=== PATIENT | female | born 1980 | race Caucasian/White ===

== ENCOUNTER 2018-10-03 18:20 | Emergency (ER) | payer OTHER ==
[~2018-10-03] VITALS: Ht 157.5 cm; Wt 80.0 kg
[~2018-10-03 18:20] MED LIST: ALBU8HFA PO; CITA-311 PO; PRED10TA PO; PROP20TA6 PO
[2018-10-03 18:29] VITALS: BP 124/65
[2018-10-03] MEDS ORDERED: GUAI120L55 PO (19:48)
[2018-10-03] MEDS ORDERED: PRED20TA PO (19:48)
== END 2018-10-03 20:06 | disposition home or self-care (01) ==
LOC: ER 18:21
DX: J20.9 Acute bronchitis, unspecified (principal); R07.89 Other chest pain; G43.909 Migraine, unspecified, not intractable, without status migrainosus; J45.909 Unspecified asthma, uncomplicated; F17.200 Nicotine dependence, unspecified, uncomplicated; Z79.899 Other long term (current) drug therapy
CPT/HCPCS: 99283

== ENCOUNTER 2019-08-02 22:38 | Emergency (ER) | payer OTHER ==
[~2019-08-02] VITALS: Ht 157.5 cm; Wt 82.7 kg
[~2019-08-02 22:38] MED LIST changes: +GUAI120L55 PO
[2019-08-02 22:43] VITALS: BP 126/67
[2019-08-02] MEDS ORDERED: PRED20TA PO ×2 (23:23→23:25)
[2019-08-02] MEDS ORDERED: ACET-3068 PO (23:23)
[2019-08-02] MEDS ORDERED: INHA1INH2 (23:23)
[2019-08-02] MEDS ORDERED: BENZ-16 PO (23:23)
[2019-08-02] MEDS ORDERED: GUAI-647 PO (23:25)
[2019-08-02] MEDS ORDERED: benzonatate 100mg capsule PO ONE (23:30)
[2019-08-02] MEDS ORDERED: ALBU18HF2 INH (23:38)
== END 2019-08-02 23:44 | disposition home or self-care (01) ==
LOC: ER 22:38
DX: J06.9 Acute upper respiratory infection, unspecified (principal); G43.909 Migraine, unspecified, not intractable, without status migrainosus; J45.909 Unspecified asthma, uncomplicated; F32.9 Major depressive disorder, single episode, unspecified; F17.200 Nicotine dependence, unspecified, uncomplicated; Z88.6 Allergy status to analgesic agent; Z79.899 Other long term (current) drug therapy
CPT/HCPCS: 99283

== ENCOUNTER 2020-08-17 15:42 | Emergency (ER) | payer MEDICAID ==
[~2020-08-17] VITALS: Ht 157.5 cm; Wt 88.0 kg
[~2020-08-17 15:42] MED LIST changes: +ALBU18HF2 INH; +INHA1INH2
[2020-08-17 15:45] VITALS: BP 119/44
[2020-08-17] MEDS ORDERED: ALB0.5UD IH (16:52)
[2020-08-17] MEDS ORDERED: PRED20TA PO (16:52)
== END 2020-08-17 17:07 | disposition home or self-care (01) ==
LOC: ER 15:42
DX: J20.9 Acute bronchitis, unspecified (principal); G43.909 Migraine, unspecified, not intractable, without status migrainosus; J45.909 Unspecified asthma, uncomplicated; Z91.041 Radiographic dye allergy status; Z79.899 Other long term (current) drug therapy
CPT/HCPCS: 99283

== ENCOUNTER 2020-10-11 23:29 | Emergency (ER) | payer MEDICAID, OTHER ==
[~2020-10-11] VITALS: Ht 157.5 cm; Wt 75.0 kg
[2020-10-11 23:32] VITALS: BP 135/87
[2020-10-11] MEDS ORDERED: PRED20TA PO (23:43)
== END 2020-10-12 00:15 | disposition home or self-care (01) ==
LOC: ER 23:29
DX: J02.9 Acute pharyngitis, unspecified (principal); R43.8 Other disturbances of smell and taste; R05 Cough; R50.9 Fever, unspecified; Z20.822 Contact with and (suspected) exposure to COVID-19; G43.909 Migraine, unspecified, not intractable, without status migrainosus; J45.909 Unspecified asthma, uncomplicated; F32.9 Major depressive disorder, single episode, unspecified; Z88.8 Allergy status to other drugs, medicaments and biological substances; Z79.899 Other long term (current) drug therapy
CPT/HCPCS: 36415; 87635; 99283; C9803

== ENCOUNTER 2020-12-09 21:52 | Emergency (ER) | payer SELFPAY ==
[~2020-12-09] VITALS: Ht 157.5 cm; Wt 77.7 kg
[2020-12-09 22:09] VITALS: BP 129/94
[2020-12-09] MEDS ORDERED: ketorolac tromethamine 15mg/ml inj. IM ONE (22:55)
== END 2020-12-09 23:35 | disposition home or self-care (01) ==
LOC: ER 21:52
DX: G43.909 Migraine, unspecified, not intractable, without status migrainosus (principal); R11.2 Nausea with vomiting, unspecified; J45.909 Unspecified asthma, uncomplicated; F32.9 Major depressive disorder, single episode, unspecified; Z88.8 Allergy status to other drugs, medicaments and biological substances; Z79.899 Other long term (current) drug therapy
CPT/HCPCS: 96372; 99283; J1885

== ENCOUNTER 2021-01-19 22:53 | Emergency (ER) | payer OTHER ==
[~2021-01-19] VITALS: Ht 157.5 cm; Wt 82.9 kg
[2021-01-19 23:00] VITALS: BP 130/82
[2021-01-19] MEDS ORDERED: TETanus/Pertussis (Acell)/Diphther VAC/PF (Tdap-Adult) 0.5ml syringe IMVAC ONE (23:50)
== END 2021-01-20 00:25 | disposition home or self-care (01) ==
LOC: ER 22:53
DX: S80.02XA Contusion of left knee, initial encounter (principal); G43.909 Migraine, unspecified, not intractable, without status migrainosus; J45.909 Unspecified asthma, uncomplicated; Z87.81 Personal history of (healed) traumatic fracture; Z91.041 Radiographic dye allergy status; Z72.89 Other problems related to lifestyle; Z79.899 Other long term (current) drug therapy; V00.131A Fall from skateboard, initial encounter; Z91.81 History of falling; Y93.89 Activity, other specified; Y92.89 Other specified places as the place of occurrence of the external cause; Y99.8 Other external cause status
CPT/HCPCS: 73564; 90471; 90715; 99284

== ENCOUNTER 2021-01-22 23:19 | Emergency (ER) | payer OTHER ==
[~2021-01-22] VITALS: Ht 157.5 cm; Wt 81.8 kg
[2021-01-22 23:40] VITALS: BP 131/84
--- NOTE | 2021-01-23 01:24 | NUR ---
PT TO ROOM, ASSUMED CARE
--- NOTE | 2021-01-23 01:53 | NUR ---
Note agnes in [facility] - 01/23/21 at 0159 by [email or web address] pt states he does not want to wait. left without signing papers or with d/c papers.
--- NOTE | 2021-01-23 01:57 | NUR ---
Ty alarcon in [facility] - 01/23/21 at 0159 by [email or web address] unable to collect last set of VS
--- NOTE | 2021-01-23 02:45 | NUR ---
pt not in room after 30 minutes. pt expressed leaving and has not returned.
== END 2021-01-23 03:06 | disposition left against medical advice (07) ==
LOC: ER 23:20
DX: M25.569 Pain in unspecified knee (principal); Z53.21 Procedure and treatment not carried out due to patient leaving prior to being seen by health care provider

== ENCOUNTER 2021-03-22 18:48 | Emergency (ER) | payer OTHER ==
[~2021-03-22] VITALS: Ht 157.5 cm; Wt 71.8 kg
[2021-03-22 18:49] VITALS: BP 144/90
--- NOTE | 2021-03-22 20:30 | NUR ---
patient walked out prior to being seen by provider
== END 2021-03-22 20:45 | disposition left against medical advice (07) ==
LOC: ER 18:49
DX: R51.9 Headache, unspecified (principal); Z53.21 Procedure and treatment not carried out due to patient leaving prior to being seen by health care provider

== ENCOUNTER 2021-05-29 20:07 | Emergency (ER) | payer MEDICAID ==
[~2021-05-29] VITALS: Ht 157.5 cm; Wt 81.8 kg
[2021-05-29 20:35] VITALS: BP 108/82
[2021-05-29] MEDS ORDERED: ketorolac trometh inj. 60 MG/2 ML VIAL IM ONE (20:55)
== END 2021-05-29 22:01 | disposition home or self-care (01) ==
LOC: ER 20:08
DX: G43.909 Migraine, unspecified, not intractable, without status migrainosus (principal); R11.10 Vomiting, unspecified; J45.909 Unspecified asthma, uncomplicated; F32.9 Major depressive disorder, single episode, unspecified; F17.200 Nicotine dependence, unspecified, uncomplicated; Z88.8 Allergy status to other drugs, medicaments and biological substances; Z79.899 Other long term (current) drug therapy
CPT/HCPCS: 96372; 99283; J1885

== ENCOUNTER 2022-01-09 18:51 | Emergency (ER) | payer SELFPAY ==
[~2022-01-09] VITALS: Ht 157.5 cm; Wt 84.1 kg
[2022-01-09 19:19] VITALS: BP 147/79
[2022-01-09] MEDS ORDERED: normal saline 1000ml 1,000 ML IV ONE (20:00)
[2022-01-09] MEDS ORDERED: diphenhydrAMINE 50 mg/ml inj IV ONE (20:00)
[2022-01-09] MEDS ORDERED: proCHLORperazine 10 MG/2 ml inj IV ONE (20:00)
[2022-01-09] MEDS ORDERED: ketorolac trometh. 30mg/ml inj. IV ONE (20:35)
== END 2022-01-09 21:06 | disposition home or self-care (01) ==
LOC: ER 18:52
DX: G43.909 Migraine, unspecified, not intractable, without status migrainosus (principal); J45.909 Unspecified asthma, uncomplicated; F32.A Depression, unspecified; Z88.8 Allergy status to other drugs, medicaments and biological substances; Z79.899 Other long term (current) drug therapy
CPT/HCPCS: 96374; 99283; J1885

== ENCOUNTER 2022-01-31 22:26 | Emergency (ER) | payer OTHER ==
[~2022-01-31] VITALS: Ht 157.5 cm; Wt 89.9 kg
[2022-01-31] MEDS ORDERED: ketorolac trometh inj. 60 MG/2 ML VIAL IM ONE (23:15)
[2022-01-31] MEDS ORDERED: TRAM50TA2 PO (23:33)
[2022-01-31] MEDS ORDERED: CYCL-1 PO (23:33)
[2022-01-31 23:36] VITALS: BP 155/102
== END 2022-01-31 23:40 | disposition home or self-care (01) ==
LOC: ER 22:27
DX: S30.0XXA Contusion of lower back and pelvis, initial encounter (principal); S90.32XA Contusion of left foot, initial encounter; K59.00 Constipation, unspecified; M79.675 Pain in left toe(s); G43.909 Migraine, unspecified, not intractable, without status migrainosus; J45.909 Unspecified asthma, uncomplicated; F32.A Depression, unspecified; Z88.8 Allergy status to other drugs, medicaments and biological substances; Z79.899 Other long term (current) drug therapy
CPT/HCPCS: 72220; 73660; 96372; 99284; J1885

== ENCOUNTER 2022-02-09 17:43 | Emergency (ER) | payer SELFPAY ==
[~2022-02-09 17:43] MED LIST changes: +CYCL-1 PO; +TRAM50TA2 PO
== END 2022-02-09 18:47 | disposition left against medical advice (07) ==
LOC: ER 17:44
DX: M54.89 Other dorsalgia (principal); Z53.21 Procedure and treatment not carried out due to patient leaving prior to being seen by health care provider

== ENCOUNTER 2022-02-12 08:41 | Emergency (ER) | payer MEDICAID, OTHER ==
[~2022-02-12] VITALS: Ht 157.5 cm; Wt 81.8 kg
[2022-02-12 09:00] VITALS: BP 128/93
[2022-02-12] MEDS ORDERED: KETO10TA2 PO (09:12)
[2022-02-12] MEDS ORDERED: TRAM50TA2 PO (09:12)
[2022-02-12] MEDS ORDERED: CYCL-1 PO (09:12)
[2022-02-12] MEDS ORDERED: LIDO700A32 TOP (09:12)
[2022-02-12] MEDS ORDERED: ketorolac trometh inj. 60 MG/2 ML VIAL IM ONE (09:15)
== END 2022-02-12 09:52 | disposition home or self-care (01) ==
LOC: ER 08:42
DX: S30.0XXA Contusion of lower back and pelvis, initial encounter (principal); R26.2 Difficulty in walking, not elsewhere classified; G43.909 Migraine, unspecified, not intractable, without status migrainosus; J45.909 Unspecified asthma, uncomplicated; F32.A Depression, unspecified; Z88.8 Allergy status to other drugs, medicaments and biological substances; Z79.899 Other long term (current) drug therapy; W19.XXXA Unspecified fall, initial encounter; Y93.89 Activity, other specified; Y92.89 Other specified places as the place of occurrence of the external cause; Y99.8 Other external cause status
CPT/HCPCS: 96372; 99284; J1885

== ENCOUNTER 2022-09-09 22:39 | Emergency (ER) | payer BC, MEDICAID, OTHER ==
[~2022-09-09] VITALS: Ht 157.5 cm; Wt 80.9 kg
[~2022-09-09 22:39] MED LIST changes: +KETO10TA2 PO; +LIDO700A32 TOP; -TRAM50TA2 PO
[2022-09-09 22:43] VITALS: BP 139/85
== END 2022-09-09 23:58 | disposition home or self-care (01) ==
LOC: ER 22:40
DX: B34.9 Viral infection, unspecified (principal); Z20.822 Contact with and (suspected) exposure to COVID-19; R05.9 Cough, unspecified; R09.89 Other specified symptoms and signs involving the circulatory and respiratory systems; R50.9 Fever, unspecified; G43.909 Migraine, unspecified, not intractable, without status migrainosus; J45.909 Unspecified asthma, uncomplicated; F32.A Depression, unspecified; Z88.8 Allergy status to other drugs, medicaments and biological substances; Z79.899 Other long term (current) drug therapy
CPT/HCPCS: 87502; 87503; 87635; 99283; C9803

== ENCOUNTER 2022-09-11 20:43 | Emergency (ER) | payer SELFPAY ==
[~2022-09-11] VITALS: Ht 157.5 cm; Wt 79.5 kg
[2022-09-11 20:52] VITALS: BP 154/104
== END 2022-09-11 22:54 | disposition left against medical advice (07) ==
LOC: ER 20:44
DX: R05.9 Cough, unspecified (principal); Z53.21 Procedure and treatment not carried out due to patient leaving prior to being seen by health care provider

== ENCOUNTER 2022-09-13 15:20 | Emergency (ER) | payer BC ==
[~2022-09-13] VITALS: Ht 157.5 cm; Wt 79.5 kg
[2022-09-13 16:01] VITALS: BP 125/76
[2022-09-13] MEDS ORDERED: dexamethasone sod phosphate 10mg/ml inj PO STA (18:50)
== END 2022-09-13 19:07 | disposition home or self-care (01) ==
LOC: ER 15:21
DX: J20.9 Acute bronchitis, unspecified (principal); J04.0 Acute laryngitis; G43.909 Migraine, unspecified, not intractable, without status migrainosus; Z91.041 Radiographic dye allergy status
CPT/HCPCS: 99283; J1100

== ENCOUNTER 2022-09-16 20:19 | Emergency (ER) | payer SELFPAY ==
[~2022-09-16] VITALS: Ht 157.5 cm; Wt 93.4 kg
[2022-09-16 20:25] VITALS: BP 141/107
== END 2022-09-17 03:50 | disposition left against medical advice (07) ==
LOC: ER 20:21
DX: Z02.79 Encounter for issue of other medical certificate (principal); Z53.21 Procedure and treatment not carried out due to patient leaving prior to being seen by health care provider

== ENCOUNTER 2023-03-05 02:00 | Emergency (ER) | payer SELFPAY ==
[~2023-03-05] VITALS: Ht 157.5 cm; Wt 94.0 kg
[2023-03-05 02:34] VITALS: BP 150/104
== END 2023-03-05 08:41 | disposition left against medical advice (07) ==
LOC: ER 02:01
DX: M79.602 Pain in left arm (principal); Z53.21 Procedure and treatment not carried out due to patient leaving prior to being seen by health care provider
CPT/HCPCS: 99281

== ENCOUNTER 2023-11-26 20:32 | Emergency (ER) | payer BC ==
[~2023-11-26] VITALS: Ht 157.5 cm; Wt 85.0 kg
[2023-11-26 20:38] VITALS: BP 163/84; PULSE 82; RESP 16; TEMP 98.2; O2SAT 95
[2023-11-26] MEDS ORDERED: TETRAcaine 0.5% ophthalmic drops 15ml EACHEYE ONE (23:25)
[2023-11-26] MEDS ORDERED: TETRACAINE 0.5% 4 ML OPHTHALMIC DROPS EACHEYE ONE (23:35)
== END 2023-11-27 00:49 | disposition left against medical advice (07) ==
LOC: ER 20:32
DX: H57.12 Ocular pain, left eye (principal); Z53.21 Procedure and treatment not carried out due to patient leaving prior to being seen by health care provider
CPT/HCPCS: 99281

== ENCOUNTER 2024-05-11 20:17 | Emergency (ER) | payer BC ==
[~2024-05-11] VITALS: Ht 157.5 cm; Wt 86.0 kg
[2024-05-11] MEDS: HYDROcodone/acetaminophen 5mg/325mg tablet PO STA (22:19)
[2024-05-11 22:24] VITALS: BP 141/84; PULSE 88; RESP 18; TEMP 98.9; O2SAT 98
== END 2024-05-11 22:25 | disposition home or self-care (01) ==
LOC: ER 20:18
DX: S93.401A Sprain of unspecified ligament of right ankle, initial encounter (principal); G43.909 Migraine, unspecified, not intractable, without status migrainosus; J45.909 Unspecified asthma, uncomplicated; F32.A Depression, unspecified; Z91.041 Radiographic dye allergy status; Z79.899 Other long term (current) drug therapy; X50.1XXA Overexertion from prolonged static or awkward postures, initial encounter; Y93.89 Activity, other specified; Y92.89 Other specified places as the place of occurrence of the external cause; Y99.8 Other external cause status
CPT/HCPCS: 73610; 99283

== ENCOUNTER 2024-05-18 00:17 | Emergency (ER) | payer BC ==
[~2024-05-18] VITALS: Ht 157.5 cm; Wt 109.5 kg
[2024-05-18] MEDS ORDERED: CEPH-585 PO (03:02)
[2024-05-18] MEDS: cephalexin 250mg capsule PO ONE (03:13)
[2024-05-18 03:19] VITALS: BP 131/89; PULSE 73; RESP 14; TEMP 98.8; O2SAT 97
== END 2024-05-18 03:21 | disposition home or self-care (01) ==
LOC: ER 00:19
DX: S80.02XA Contusion of left knee, initial encounter (principal); S90.02XA Contusion of left ankle, initial encounter; G43.909 Migraine, unspecified, not intractable, without status migrainosus; G40.909 Epilepsy, unspecified, not intractable, without status epilepticus; F17.210 Nicotine dependence, cigarettes, uncomplicated; F32.A Depression, unspecified; J45.909 Unspecified asthma, uncomplicated; Z87.81 Personal history of (healed) traumatic fracture; W18.30XA Fall on same level, unspecified, initial encounter; Z91.041 Radiographic dye allergy status; Z79.899 Other long term (current) drug therapy; Z91.81 History of falling; Y93.89 Activity, other specified; Y92.89 Other specified places as the place of occurrence of the external cause; Y99.8 Other external cause status
CPT/HCPCS: 99284

== ENCOUNTER 2024-06-07 02:08 | Inpatient (IN) | payer BC ==
[~2024-06-07] VITALS: Ht 157.5 cm; Wt 100.0 kg
[2024-06-07] VITALS (7 sets, daily range): BP systolic 121–156; BP diastolic 76–99; PULSE 64–72; RESP 14–22; TEMP 98–98.7; O2SAT 94–97
[2024-06-07 02:41] LABS: BASOPHILS # (AUTO) 0.1 X10'3 (0-0.2); BASOPHILS % (AUTO) 0.8 % (0-1); EOSINOPHILS # (AUTO) 0.1 X10'3 (0-0.9); EOSINOPHILS % (AUTO) 1.3 % (0-6); HEMATOCRIT 41.6 % (35.0-45.0); HEMOGLOBIN 13.5 g/dl (12.0-16.0); LYMPHOCYTES # (AUTO) 1.3 X10'3 (1.1-4.8); LYMPHOCYTES % (AUTO) 11.9 % (21-51); MEAN CORPUSCULAR HEMOGLOBIN 32.3 PG (27.0-31.0); MEAN CORPUSCULAR HGB CONC 32.4 g/dL (33.0-36.5); MEAN CORPUSCULAR VOLUME 99.5 FL (78-98); MEAN PLATELET VOLUME 8.3 FL (7.4-10.4); MONOCYTES # (AUTO) 1.1 X10'3 (0-0.9); MONOCYTES % (AUTO) 9.4 % (2-12); NEUTROPHILS # (AUTO) 8.5 X10'3 (1.8-7.7); NEUTROPHILS % (AUTO) 76.6 % (42-75); PLATELET COUNT 283 X10'3 (140-440); RED BLOOD COUNT 4.18 X10'6 (4.20-5.60); RED CELL DISTRIBUTION WIDTH 17.4 % (11.5-14.5); WHITE BLOOD COUNT 11.2 X10'3 (4.5-11.0)
[2024-06-07 02:54] LABS: ALANINE AMINOTRANSFERASE 42 U/L (12-78); ALBUMIN 3.4 G/DL (3.4-5.0); ALBUMIN/GLOBULIN RATIO 0.9 (1.1-1.5); ALKALINE PHOSPHATASE 115 IU/L (46-116); ANION GAP 11 (8-16); ASPARTATE AMINO TRANSFERASE 77 U/L (10-37); BILIRUBIN,TOTAL 0.4 MG/DL (0.1-1.0); BLOOD UREA NITROGEN 3 MG/DL (7-18); BUN/CREATININE RATIO 5.9 (10.0-20.0); CALCIUM 9.3 MG/DL (8.5-10.1); CHLORIDE 102 MMOL/L (99-107); CREATININE 0.51 MG/DL (0.40-0.90); GLUCOSE 102 MG/DL (70-104); POTASSIUM 3.1 MMOL/L (3.5-5.1); SODIUM 141 MMOL/L (135-145); TOTAL CARBON DIOXIDE 28.3 MMOL/L (24-32); TOTAL PROTEIN 7.1 G/DL (6.4-8.2); eCRCL 110 ML/MIN; eGFR > 90 ML/MIN
[2024-06-07] MEDS: normal saline 1000ml 1,000 ML IV ONE ×2 (02:56→03:05)
[2024-06-07] MEDS: ondansetron/PF 4mg/2ml inj IV ONE (02:57)
[2024-06-07] MEDS: famotidine/PF 10 mg/ml inj IV ONE (02:59)
[2024-06-07] MEDS: pantoprazole 40 MG vial IV ONE (03:00)
[2024-06-07] MEDS: mag hydrox/Alum hydrox/simeth 30ml oral suspension PO ONE (03:02)
[2024-06-07] MEDS: LIDOcaine 2% Viscous 15ml cup MM ONE (03:02)
[2024-06-07 03:12] LABS: LIPASE > 375 U/L (16-77)
[2024-06-07] MEDS: morphine 4 MG/ML inj SYRINge IV ONE (03:45)
[2024-06-07] MEDS: nicotine 21mg patch - 24 hr TD ONE (04:30)
[2024-06-07] MEDS ORDERED: CITA20TA28 PO (04:41)
[2024-06-07] MEDS ORDERED: ROSU10TA72 PO (04:41)
[2024-06-07] MEDS ORDERED: HYDR-3686 PO (04:41)
[2024-06-07] MEDS ORDERED: OMEP40CA21 PO (04:41)
[2024-06-07] MEDS ORDERED: CLON-850 PO (04:41)
[2024-06-07] MEDS ORDERED: SERT25TA PO (04:41)
[2024-06-07] MEDS ORDERED: LISI40TA13 PO (04:41)
[2024-06-07] MEDS ORDERED: QUET25TA PO (04:41)
[2024-06-07] MEDS ORDERED: SUMA25TA35 PO (04:41)
[2024-06-07] MEDS ORDERED: potassium Cl 40MEQ/1/2NS 520ml 520 ML IV PRN (04:55)
[2024-06-07] MEDS ORDERED: magnesium hydroxide 30ml (MOM) UD suspension PO PRN (04:55)
[2024-06-07] MEDS ORDERED: haloperidol lactate 5mg/ml inj IM PRN (04:55)
[2024-06-07] MEDS ORDERED: morphine 2 MG/ML inj. syringe IV PRN (04:55)
[2024-06-07] MEDS ORDERED: haloperidol 5mg tablet PO PRN (04:55)
[2024-06-07] MEDS ORDERED: magnesium sulf-water 2g/50mL 50 ML IV PRN (04:55)
[2024-06-07] MEDS ORDERED: potassium Cl 20 mEq SR tablet PO PRN (04:55)
[2024-06-07] MEDS ORDERED: magnesium sulf-water 4G/100mL 100 ML IV PRN (04:55)
[2024-06-07] MEDS ORDERED: magnesium Cl slow-release 64mg tablet PO PRN (04:55)
[2024-06-07] MEDS: LORazepam 2 mg/ml vial IV PRN (05:34)
[2024-06-07] MEDS: normal saline 1000ml 1,000 ML IV SCH (05:34)
[2024-06-07] MEDS: HYDROmorphone inj. 0.5 MG/0.5 ML DISP.SYRIN IV PRN (05:34)
[2024-06-07] MEDS ORDERED: ipratropium/albuterol 3ml nebule NEB PRN (06:30)
[2024-06-07] MEDS: docusate sod 100mg capsule PO SCH (07:01)
[2024-06-07 07:10] LABS: MAGNESIUM 1.7 MG/DL (1.5-2.4)
[2024-06-07] MEDS: nicotine 21mg patch - 24 hr TD SCH (08:03)
[2024-06-07] MEDS: potassium Cl 20 mEq SR tablet PO PRN (08:03)
[2024-06-07] MEDS: K and/or MAG REPLACEMENT MC SCH (08:03)
[2024-06-07 08:05] LABS: BILIRUBIN,URINE SMALL (Neg); CLARITY,URINE CLEAR (Clear); COLOR,URINE YELLOW (Yellow); GLUCOSE, URINE NEGATIVE (Neg); KETONES,URINE NEGATIVE (Neg); LEUKOCYTE ESTERASE ,URINE TRACE (Neg); NITRITES, URINE NEGATIVE (Neg); OCCULT BLOOD,URINE NEGATIVE (Neg); PH,URINE 6.5 (4.8-8.0); PROTEIN,URINE TRACE mg/dl (Neg); UROBILINOGEN,URINE 0.2 E.U/dL (0.2-1.0)
[2024-06-07 08:06] LABS: UA COLLECTION TYPE CLN CATCH MIDSTREAM
[2024-06-07 08:09] LABS: URINE HCG NEGATIVE (NEG)
[2024-06-07 08:12] LABS: SQUAMOUS EPITHELIAL CELL,UR FEW /LPF (FEW)
[2024-06-07 08:13] LABS: BACTERIA,URINE 1+ /HPF (Neg); MUCUS STRANDS FEW /LPF (Neg); RBC,URINE 0-2 /HPF (0-2)
[2024-06-07 08:14] LABS: WBC,URINE 0-4 /HPF (0-4)
[2024-06-07] MEDS: acetaminophen 325mg tablet PO PRN (12:58)
[2024-06-07] MEDS: ondansetron/PF 4mg/2ml inj IV PRN (15:32)
[2024-06-07] MEDS: enoxaparin 40mg/0.4ml syringe SQ SCH (19:33)
[2024-06-07] MEDS: hydrOXYzine 25 MG tablet PO ONE (21:04)
[2024-06-07] MEDS: clonazePAM 1mg tablet PO SCH (21:05)
[2024-06-07] MEDS: QUEtiapine 25mg tablet PO SCH (21:05)
[2024-06-07] MEDS: LORazepam 1 MG tablet PO PRN (21:58)
[2024-06-08] VITALS (9 sets, daily range): BP systolic 150–174; BP diastolic 67–110; PULSE 63–88; RESP 15–21; TEMP 97.2–98.2; O2SAT 95–100
[2024-06-08 08:43] LABS: BASOPHILS % (AUTO) 0.4 % (0-1); EOSINOPHILS # (AUTO) 0.2 X10'3 (0-0.9); EOSINOPHILS % (AUTO) 2.1 % (0-6); HEMATOCRIT 35.9 % (35.0-45.0); HEMOGLOBIN 11.7 g/dl (12.0-16.0); MEAN CORPUSCULAR HEMOGLOBIN 32.9 PG (27.0-31.0); MEAN CORPUSCULAR HGB CONC 32.6 g/dL (33.0-36.5); MEAN CORPUSCULAR VOLUME 100.8 FL (78-98); MEAN PLATELET VOLUME 8.3 FL (7.4-10.4); MONOCYTES # (AUTO) 0.7 X10'3 (0-0.9); NEUTROPHILS % (AUTO) 75.5 % (42-75); PLATELET COUNT 227 X10'3 (140-440); RED BLOOD COUNT 3.56 X10'6 (4.20-5.60); RED CELL DISTRIBUTION WIDTH 16.4 % (11.5-14.5); WHITE BLOOD COUNT 7.9 X10'3 (4.5-11.0)
[2024-06-08] MEDS: citalopram 20mg tablet PO SCH (08:52)
[2024-06-08] MEDS: hydrOXYzine 25 MG tablet PO SCH (08:53)
[2024-06-08] MEDS: sertraline 50mg tablet PO SCH (08:53)
[2024-06-08] MEDS: multivitamins, therapeutics tablet PO SCH (08:53)
[2024-06-08 08:56] LABS: INR 1.1 INR; PROTHROMBIN TIME 11.7 SECONDS (9.0-12.0)
[2024-06-08 09:00] LABS: ALANINE AMINOTRANSFERASE 34 U/L (12-78); ALBUMIN 2.9 G/DL (3.4-5.0); ALBUMIN/GLOBULIN RATIO 0.8 (1.1-1.5); ALKALINE PHOSPHATASE 102 IU/L (46-116); AMYLASE 39 U/L (25-115); ANION GAP 11 (8-16); BILIRUBIN,TOTAL 0.7 MG/DL (0.1-1.0); BLOOD UREA NITROGEN 4 MG/DL (7-18); BUN/CREATININE RATIO 8.9 (10.0-20.0); C-REACTIVE PROTEIN 0.93 MG/DL (0.0-0.5); CALCIUM 7.7 MG/DL (8.5-10.1); CHLORIDE 105 MMOL/L (99-107); CREATININE 0.45 MG/DL (0.40-0.90); GLUCOSE 72 MG/DL (70-104); LIPASE 165 U/L (16-77); MAGNESIUM 1.6 MG/DL (1.5-2.4); SODIUM 139 MMOL/L (135-145); TOTAL CARBON DIOXIDE 22.6 MMOL/L (24-32); TOTAL PROTEIN 6.4 G/DL (6.4-8.2); eCRCL 125 ML/MIN; eGFR > 90 ML/MIN
[2024-06-08 09:01] LABS: ASPARTATE AMINO TRANSFERASE 58 U/L (10-37); PHOSPHORUS 2.8 MG/DL (2.3-4.5); POTASSIUM 3.8 MMOL/L (3.5-5.1)
[2024-06-08] MEDS: pantoprazole 40mg Tablet.DR PO SCH (09:09)
[2024-06-08] MEDS: piperacillin/tazo 3.375gm/50ml 50 ML IV SCH (10:44)
[2024-06-08] MEDS ORDERED: SUMAtriptan 25 MG tablet PO PRN (16:40)
[2024-06-09 02:00] VITALS: BP 173/107; PULSE 70; RESP 18; TEMP 99.5; O2SAT 96
[2024-06-09] MEDS: mag hydrox/Alum hydrox/simeth 30ml oral suspension PO PRN (02:30)
[2024-06-09] MEDS: labetalol 20mg/4ml (5mg/ml) syringe IV ONE (04:44)
[2024-06-09 06:13] LABS: PROTHROMBIN TIME 10.9 SECONDS (9.0-12.0)
[2024-06-09 06:15] LABS: BASOPHILS % (AUTO) 0.6 % (0-1); EOSINOPHILS # (AUTO) 0.1 X10'3 (0-0.9); EOSINOPHILS % (AUTO) 1.8 % (0-6); HEMATOCRIT 36.5 % (35.0-45.0); LYMPHOCYTES % (AUTO) 13.3 % (21-51); MEAN CORPUSCULAR HEMOGLOBIN 32.8 PG (27.0-31.0); MEAN CORPUSCULAR HGB CONC 32.8 g/dL (33.0-36.5); MEAN CORPUSCULAR VOLUME 100.1 FL (78-98); MEAN PLATELET VOLUME 8.7 FL (7.4-10.4); MONOCYTES # (AUTO) 0.6 X10'3 (0-0.9); MONOCYTES % (AUTO) 8.1 % (2-12); NEUTROPHILS # (AUTO) 5.9 X10'3 (1.8-7.7); NEUTROPHILS % (AUTO) 76.2 % (42-75); PLATELET COUNT 255 X10'3 (140-440); RED BLOOD COUNT 3.65 X10'6 (4.20-5.60); RED CELL DISTRIBUTION WIDTH 16.2 % (11.5-14.5); WHITE BLOOD COUNT 7.7 X10'3 (4.5-11.0)
[2024-06-09 06:17] LABS: ALANINE AMINOTRANSFERASE 26 U/L (12-78); ALBUMIN 3.1 G/DL (3.4-5.0); ALBUMIN/GLOBULIN RATIO 0.9 (1.1-1.5); ALKALINE PHOSPHATASE 106 IU/L (46-116); AMYLASE 43 U/L (25-115); ANION GAP 8 (8-16); ASPARTATE AMINO TRANSFERASE 49 U/L (10-37); BILIRUBIN,TOTAL 0.5 MG/DL (0.1-1.0); BLOOD UREA NITROGEN 3 MG/DL (7-18); BUN/CREATININE RATIO 5.2 (10.0-20.0); C-REACTIVE PROTEIN 0.75 MG/DL (0.0-0.5); CALCIUM 8.4 MG/DL (8.5-10.1); CHLORIDE 107 MMOL/L (99-107); CREATININE 0.58 MG/DL (0.40-0.90); GLUCOSE 92 MG/DL (70-104); LIPASE 221 U/L (16-77); MAGNESIUM 1.8 MG/DL (1.5-2.4); PHOSPHORUS 2.6 MG/DL (2.3-4.5); POTASSIUM 3.5 MMOL/L (3.5-5.1); SODIUM 141 MMOL/L (135-145); TOTAL CARBON DIOXIDE 25.9 MMOL/L (24-32); TOTAL PROTEIN 6.7 G/DL (6.4-8.2); eCRCL 97 ML/MIN; eGFR > 90 ML/MIN
[2024-06-09 07:05] VITALS: BP 170/101; PULSE 60; RESP 16; TEMP 97.4; O2SAT 98
[2024-06-09 07:29] VITALS: BP_SYST 170; PULSE 64
[2024-06-09] MEDS: lisinopril 20mg tablet PO SCH (07:29)
[2024-06-09 08:00] VITALS: RESP 16; O2SAT 98
[2024-06-09] MEDS: fluconazole 150mg tablet PO ONE (11:29)
[2024-06-11] MEDS ORDERED: thiamine 100mg tablet PO SCH (08:00)
[2024-06-12] MEDS ORDERED: folic acid 1mg tablet PO SCH (08:00)
== END 2024-06-09 12:44 | disposition home or self-care (01) | DRG 439 ==
LOC: ER 02:09 → ED HOLD 05:05 → EDBEDREQ 10:07 → PCU 3S 10:38
PROVIDERS: ADMIT Surgery Surgical Critical Care; ATTEND Nurse Practitioner Family
DX: K85.20 Alcohol induced acute pancreatitis without necrosis or infection (principal); R65.10 Systemic inflammatory response syndrome (SIRS) of non-infectious origin without acute organ dysfunction; Z68.41 Body mass index [BMI] 40.0-44.9, adult; F10.20 Alcohol dependence, uncomplicated; F43.10 Post-traumatic stress disorder, unspecified; R74.01 Elevation of levels of liver transaminase levels; G47.00 Insomnia, unspecified; F41.9 Anxiety disorder, unspecified; J45.909 Unspecified asthma, uncomplicated; E66.01 Morbid (severe) obesity due to excess calories; F32.A Depression, unspecified; G43.909 Migraine, unspecified, not intractable, without status migrainosus; Z91.041 Radiographic dye allergy status; Z79.899 Other long term (current) drug therapy
CPT/HCPCS: 36410; 36415; 76700; 76937; 80053; 81001; 81025; 82150; 82948; 83690; 83735; 84100; 84484; 85025; 85610; 86140; 87081; 87088; 93005; 94760; 99285; C1751; G0378; J1170; J1650; J2060; J2270; J2405; J2470; J2543; J3490; J7030; J7040; Q0177

== ENCOUNTER 2024-07-18 21:39 | Emergency (ER) | payer BC ==
[~2024-07-18] VITALS: Ht 157.5 cm; Wt 104.6 kg
[~2024-07-18 21:39] MED LIST changes: -ALBU18HF2 INH; -CITA-311 PO; +CITA20TA28 PO; +CLON-850 PO; -CYCL-1 PO; -GUAI120L55 PO; +HYDR-3686 PO; -KETO10TA2 PO; -LIDO700A32 TOP; +LISI40TA13 PO; +OMEP40CA21 PO; -PRED10TA PO; -PROP20TA6 PO; +QUET25TA PO; +ROSU10TA72 PO; +SERT25TA PO; +SUMA25TA35 PO
[2024-07-18] MEDS ORDERED: CLIN-97 PO (22:40)
[2024-07-18] MEDS ORDERED: HYDR-3965 PO (22:40)
[2024-07-18] MEDS: HYDROcodone/acetaminophen 5mg/325mg tablet PO ONE (23:04)
[2024-07-18 23:16] VITALS: BP 141/92; PULSE 59; RESP 16; TEMP 97; O2SAT 99
== END 2024-07-18 23:19 | disposition home or self-care (01) ==
LOC: ER 21:40
DX: S50.02XA Contusion of left elbow, initial encounter (principal); S90.32XA Contusion of left foot, initial encounter; K08.89 Other specified disorders of teeth and supporting structures; J45.909 Unspecified asthma, uncomplicated; G43.909 Migraine, unspecified, not intractable, without status migrainosus; F32.A Depression, unspecified; Z91.041 Radiographic dye allergy status; Z79.899 Other long term (current) drug therapy; V00.131A Fall from skateboard, initial encounter; Y93.51 Activity, roller skating (inline) and skateboarding; Y92.89 Other specified places as the place of occurrence of the external cause; Y99.8 Other external cause status
CPT/HCPCS: 73070; 99283; A6449

== ENCOUNTER 2024-10-19 17:12 | Emergency (ER) | payer BC ==
[~2024-10-19] VITALS: Ht 157.5 cm; Wt 109.0 kg
[~2024-10-19 17:12] MED LIST changes: +CLIN-97 PO
[2024-10-19 18:01] VITALS: BP 92/50; PULSE 102; TEMP 98.2; O2SAT 92
[2024-10-19 19:05] LABS: BASOPHILS % (AUTO) 0.2 % (0-1); EOSINOPHILS # (AUTO) 0.3 X10'3 (0-0.9); EOSINOPHILS % (AUTO) 2.6 % (0-6); HEMATOCRIT 39.9 % (35.0-45.0); HEMOGLOBIN 13.5 g/dl (12.0-16.0); LYMPHOCYTES # (AUTO) 0.9 X10'3 (1.1-4.8); LYMPHOCYTES % (AUTO) 8.9 % (21-51); MEAN CORPUSCULAR HGB CONC 33.9 g/dL (33.0-36.5); MEAN CORPUSCULAR VOLUME 100.2 FL (78-98); MEAN PLATELET VOLUME 8.2 FL (7.4-10.4); MONOCYTES # (AUTO) 0.8 X10'3 (0-0.9); MONOCYTES % (AUTO) 8.3 % (2-12); PLATELET COUNT 309 X10'3 (140-440); RED BLOOD COUNT 3.98 X10'6 (4.20-5.60); RED CELL DISTRIBUTION WIDTH 17.1 % (11.5-14.5); WHITE BLOOD COUNT 10.1 X10'3 (4.5-11.0)
[2024-10-19 20:19] LABS: ALBUMIN 3.8 G/DL (3.4-5.0); ANION GAP 10 (8-16); BLOOD UREA NITROGEN 8 MG/DL (7-18); BUN/CREATININE RATIO 6.2 (10.0-20.0); CALCIUM 9.2 MG/DL (8.5-10.1); CHLORIDE 94 MMOL/L (99-107); GLUCOSE 93 MG/DL (70-104); POTASSIUM 4.1 MMOL/L (3.5-5.1); SODIUM 131 MMOL/L (135-145); TOTAL CARBON DIOXIDE 26.9 MMOL/L (24-32); eCRCL 43 ML/MIN; eGFR 44 ML/MIN
[2024-10-19] MEDS ORDERED: CLINDAMYCIN 600mg IN NS 50ML 50 ML IV ONE (20:50)
[2024-10-19 21:16] VITALS: RESP 16
[2024-10-19] MEDS: ketorolac trometh 15mg/ml vial 15 MG/ML ML IV ONE (21:16)
[2024-10-19] MEDS: clindamycin 600mg/D5W 50ml 50 ML IV ONE (21:16)
== END 2024-10-19 22:16 | disposition home or self-care (01) ==
LOC: ER 17:13
DX: K04.7 Periapical abscess without sinus (principal); J45.909 Unspecified asthma, uncomplicated; G43.909 Migraine, unspecified, not intractable, without status migrainosus; F32.A Depression, unspecified; F10.90 Alcohol use, unspecified, uncomplicated; Y90.9 Presence of alcohol in blood, level not specified; Z91.041 Radiographic dye allergy status; Z79.899 Other long term (current) drug therapy; Z56.0 Unemployment, unspecified
CPT/HCPCS: 36415; 80048; 83605; 84145; 85025; 87040; 96365; 96375; 99284; J1885; J3490

== ENCOUNTER 2024-10-28 21:28 | Emergency (ER) | payer BC ==
[~2024-10-28] VITALS: Ht 157.5 cm; Wt 96.3 kg
[2024-10-28 21:30] VITALS: BP 151/96; PULSE 118; RESP 20; TEMP 98.2; O2SAT 100
[2024-10-28 22:11] LABS: BASOPHILS # (AUTO) 0.1 X10'3 (0-0.2); BASOPHILS % (AUTO) 0.5 % (0-1); EOSINOPHILS # (AUTO) 0.3 X10'3 (0-0.9); EOSINOPHILS % (AUTO) 3.4 % (0-6); HEMATOCRIT 45.4 % (35.0-45.0); HEMOGLOBIN 15.1 g/dl (12.0-16.0); LYMPHOCYTES # (AUTO) 1.7 X10'3 (1.1-4.8); LYMPHOCYTES % (AUTO) 17.8 % (21-51); MEAN CORPUSCULAR HGB CONC 33.2 g/dL (33.0-36.5); MEAN CORPUSCULAR VOLUME 99.3 FL (78-98); MEAN PLATELET VOLUME 7.7 FL (7.4-10.4); MONOCYTES % (AUTO) 10.8 % (2-12); NEUTROPHILS # (AUTO) 6.5 X10'3 (1.8-7.7); NEUTROPHILS % (AUTO) 67.5 % (42-75); PLATELET COUNT 371 X10'3 (140-440); RED BLOOD COUNT 4.57 X10'6 (4.20-5.60); RED CELL DISTRIBUTION WIDTH 17.5 % (11.5-14.5); WHITE BLOOD COUNT 9.7 X10'3 (4.5-11.0)
[2024-10-28 22:22] LABS: ALBUMIN 4.3 G/DL (3.4-5.0); ANION GAP 12 (8-16); APTT 30 SECONDS (22-32); BLOOD UREA NITROGEN 6 MG/DL (7-18); BUN/CREATININE RATIO 7.1 (10.0-20.0); CALCIUM 9.5 MG/DL (8.5-10.1); CHLORIDE 98 MMOL/L (99-107); CREATININE 0.85 MG/DL (0.40-0.90); GLUCOSE 97 MG/DL (70-104); MAGNESIUM 2.9 MG/DL (1.5-2.4); POTASSIUM 3.5 MMOL/L (3.5-5.1); PROTHROMBIN TIME 10.9 SECONDS (9.0-12.0); SODIUM 136 MMOL/L (135-145); eCRCL 66 ML/MIN; eGFR 72 ML/MIN
[2024-10-28] MEDS: methylPREDNISolone sod succ 125mg/2ml vial IV ONE (22:34)
[2024-10-28] MEDS: diphenhydrAMINE 50 mg/ml inj IV ONE (22:34)
[2024-10-28] MEDS: normal saline 1000ML IV soln IVB ONE (22:34)
== END 2024-10-29 00:03 | disposition left against medical advice (07) ==
LOC: EEVIPCON 21:29 → ER 21:29
DX: T71.9XXA Asphyxiation due to unspecified cause, initial encounter (principal); J45.909 Unspecified asthma, uncomplicated; G43.909 Migraine, unspecified, not intractable, without status migrainosus; R79.1 Abnormal coagulation profile; Z91.041 Radiographic dye allergy status; Z88.8 Allergy status to other drugs, medicaments and biological substances; Y09 Assault by unspecified means
CPT/HCPCS: 36415; 80048; 83735; 85025; 85610; 85730; 96361; 96374; 96375; 99284; J1200; J2919; J7030